=== PATIENT | female | born 1985 | race Caucasian/White ===

== ENCOUNTER 2017-11-04 00:05 | Emergency (ER) | payer MEDICAID ==
[~2017-11-04] VITALS: Ht 154.9 cm; Wt 59.4 kg
[~2017-11-04 00:05] MED LIST: NORG1TAB30 PO; SULF1TAB24 PO
--- NOTE | 2017-11-04 01:07 | ER.PDOC ---
General Chief Complaint: Toothache Stated Complaint: TOOTHACHE Time seen by MD: 01:04 Source: patient Exam Limitations: no limitations History of Present Illness Initial Comments Toothache for 2 weeks Timing/Duration: gradual Associated Symptoms: mod sore throat Severity: moderate Allergies: Coded Allergies: No Known Allergies (Unverified , 01/01/14) Home Meds Active Scripts Norgestimate-Ethinyl Estradiol (ORTHO-CYCLEN) 1 Each Tablet, 1 EACH PO DAILY, # 28 TABLET 3 Refills Prov:MAYA JOHNSON NP 01/01/14 Past Medical History Medical History: no pertinent history Surgical History: no surgical history LMP (females 10-50): this week Social History Smoking: cigarettes, less than 1 pack/day Alcohol Use: none Drug Use: none Constitutional: no symptoms reported Mouth: see HPI Throat: no symptoms reported Respiratory: no symptoms reported Cardiovascular: no symptoms reported Gastrointestinal: no symptoms reported Musculoskeletal: no symptoms reported All Other Systems: Reviewed and Negative Physical Exam General Appearance: alert, no distress Eyes: eyes nml inspection, PERRL, no nystagmus Mouth: dental tenderness (upper incissors) Ears/Nose: nml inspection Respiratory: no resp. distress, lungs clear CVS: reg. rate & rhythm, heart sounds nml Abdomen: non-tender, no organomegaly Extremities: non-tender, ROM nml Skin Exam: Normal Color, Warm/Dry NEURO/PSYCH: oriented X3, mood/effect nml Departure Time of Disposition: 01:06 Disposition: 01 HOME, SELF-CARE Impression: Primary Impression: Pain, dental Condition: Stable Referrals: MAYA JOHNSON DRILL INSTRUCTOR (PCP) PRIMARY CARE PROVIDER Additional Instructions: Amoxil Tramadol F/U with your Dentist [place] Duration or Time Spent with Pa: 20 mins ROSANGELA FARIAS MD Nov 04, 2017 01:07
[2017-11-04] MEDS ORDERED: TORADOL ONE (01:12)
[2017-11-04] MEDS ORDERED: TORADOL IM STA (01:13)
[2017-11-04 01:46] VITALS: BP 135/79
== END 2017-11-04 01:15 | disposition home or self-care (01) ==
LOC: ER 00:05
DX: K08.89 Other specified disorders of teeth and supporting structures (principal); J02.9 Acute pharyngitis, unspecified; F17.210 Nicotine dependence, cigarettes, uncomplicated
CPT/HCPCS: 96372; 99283; J1885

== ENCOUNTER 2019-08-22 08:22 | Emergency (ER) | payer OTHER ==
[~2019-08-22] VITALS: Ht 154.9 cm; Wt 65.8 kg
--- NOTE | 2019-08-22 08:48 | ER.PDOC ---
General Chief Complaint: Requesting Medical Care Stated Complaint: POSSIBLE STREP Time seen by MD: 08:40 Source: patient Exam Limitations: no limitations History of Present Illness Initial Comments sore throat for two days, child had confirmed strep and was on antibiotic Timing/Duration: gradual Associated Symptoms: mod sore throat Severity: moderate Allergies: Coded Allergies: No Known Allergies (Unverified , 01/01/14) Home Meds Active Scripts Norgestimate-Ethinyl Estradiol (ORTHO-CYCLEN) 1 Each Tablet, 1 EACH PO DAILY, #28 TABLET 3 Refills Prov:MAYA JOHNSON NP 01/01/14 Past Medical History Surgical History: no surgical history Social History Drug Use: none Constitutional: denies chills, denies fever Ears: denies pain Nose: denies pain Mouth: denies pain Throat: pain Respiratory: denies cough Cardiovascular: denies chest pain Gastrointestinal: denies abdominal pain, denies vomiting Musculoskeletal: denies neck pain Physical Exam General Appearance: alert, no distress Head/Neck: cervical lymphadenopathy Eyes: eyes nml inspection Mouth: lips, gums nml Throat: pharyngeal erythema Ears/Nose: nml inspection Respiratory: no resp. distress CVS: reg. rate & rhythm Abdomen: non-tender Extremities: non-tender Skin Exam: Normal Color, Warm/Dry NEURO/PSYCH: oriented X3, mood/effect nml, disoriented to person Departure Time of Disposition: 08:49 Disposition: 01 HOME, SELF-CARE Impression: Primary Impression: Acute pharyngitis Condition: Stable Patient Instructions: Viral and Bacterial Pharyngitis Referrals: MAYA JOHNSON FORESTRY ENGINEER (PCP) PRIMARY CARE PROVIDER Additional Instructions: return for any worsening symptoms Duration or Time Spent with Pa: SUNITA DUNHAM MD Aug 22, 2019 08:48
[2019-08-22 09:02] VITALS: BP 119/78
== END 2019-08-22 09:15 | disposition home or self-care (01) ==
LOC: ER 08:22
DX: J02.9 Acute pharyngitis, unspecified (principal)
CPT/HCPCS: 99283

== ENCOUNTER → 2022-04-02 | Outpatient (CLI) | payer OTHER ==
[~2022-04-02] MED LIST changes: +LEVOPHED ONE; +NS 1000ML 1,000 ML ONE; +NS 100ML 100 ML IV ONE; +NS 250ML 250 ML ONE
[2022-04-02 11:19] LABS: BILIRUBIN,URINE NEGATIVE (NEGATIVE); UROBILINOGEN,URINE 0.2 E.U./dL (0.2)
== END | disposition home or self-care (01) ==
LOC: LAB 10:56
PROVIDERS: ATTEND Nurse Practitioner Women's Health
DX: N39.0 Urinary tract infection, site not specified (principal)
CPT/HCPCS: 81001; 87077; 87086; 87186